=== PATIENT | female | born 1975 | race Caucasian/White ===

== ENCOUNTER 2024-12-02 09:40 | Observation (INO) ==
[2024-12-02] MEDS ORDERED: 0.9 % SODIUM CHLORIDE 1000 ML 1,000 ML IV SCH (10:00)
[2024-12-02] MEDS ORDERED: 0.9 % SODIUM CHLORIDE 1000 ML 1,000 ML IV ONE (10:02)
[2024-12-02 10:12] LABS: Basophils #(Absolute) Auto 0.0 (0.0-0.1); Basophils%(Percent) Auto 0.1 (0.1-0.85); Eosinophils#(Absolute)Auto 0.0 (0.0-0.2); Eosinophils%(Percent) Auto 0.0 % (0.4-2.8); Granulocytes % - Auto 91.8 % (47.8-71.3); Granulocytes#(Absolute)- Auto 13.8 (2.3-6.0); Hematocrit 39.7 % (35.9-46.7); Mean Corpuscular Volume 84.1 fl (81.0-93.7); Monocytes #(Absolute)- Auto 0.7 (1.1-3.1); Monocytes %(Percent)- Auto 4.5 % (3.6-9.8); Platelet Count 327 K/uL (152-353); White Blood Count 15.1 K/uL (4.3-9.3)
[2024-12-02] MEDS ORDERED: ONDANSETRON HCL/PF 4 MG/2 ML VIAL ONE (10:19)
[2024-12-02 10:20] LABS: Carbon Dioxide 28.0 mmol/L (21-32); Glucose 132.0 mg/dL (70-110); Potassium 3.7 mmol/L (3.6-5.2); Sodium 139.0 mmol/L (136-145)
[2024-12-02] MEDS: 0.9 % SODIUM CHLORIDE 1000 ML 1,000 ML IV ONE ×2 (10:20→10:54)
[2024-12-02] MEDS: ONDANSETRON HCL/PF 4 MG/2 ML VIAL IVP ONE (10:20)
--- NOTE | 2024-12-02 10:58 | Emergency Department Note ---
HPI - Nausea/Vomiting/Diarrhea General Chief complaint: Nausea/Vomiting/Diarrhea Stated complaint: vomiting Time Seen by Provider: 12/02/24 09:44 Source: patient Mode of arrival: walk-in Limitations: no limitations History of Present Illness HPI Narrative: This is a 49-year-old white female who presents with 3-day history of nausea, vomiting, diarrhea. She denies abdominal pain. She admits some low-grade fever and chills. She has not taken any medications at home. Nothing makes her symptoms better or worse. She is in no distress. She denies sick contacts or recent travel. She has no other complaints. MD elicited complaint: Reports nausea, vomiting and diarrhea; Denies abdominal pain Pertinent past history: Denies anorexia or bulimia Onset (ago): day(s) (3) Description of vomiting: Reports watery Description of diarrhea: Reports watery Associated nausea: Yes Associated abdominal pain: No Location of pain: Reports diffuse Radiation: Reports diffuse Pain consistency: Reports constant Severity: moderate Quality: Reports cramping Exacerbating factors: Reports none Relieving factors: Reports none Context: Reports possible food poisoning; Denies foreign travel, sick contacts or recent antibiotic use Associated symptoms: Reports myalgias; Denies chest pain, cough, diaphoresis or fever/chills Treatment prior to arrival: Denies Imodium, analgesics or NSAIDs Related Data Allergies Allergy/AdvReac Type Severity Reaction Status Date / Time Penicillins Allergy Verified 12/02/24 09:57 Review of Systems Status of ROS 10 or more systems reviewed and unremark able except as noted in history and below Constitutional Denies: fever, chills, change in weight or fatigue Eyes Denies: change in vision, blurry vision, blind spots or light sensitivity Ears, nose, mouth, and throat Reports: ear pain; Denies: throat pain, neck pain, throat swelling or difficulty swallowing Cardiovascular Denies: chest pain, palpitations, edema, swelling of feet/ankles or shortness of breath with exertion Respiratory Denies: shortness of breath, cough or wheezing Gastrointestinal Reports: nausea, vomiting and diarrhea; Denies: abdominal pain or difficulty swallowing Genitourinary Denies: painful urination, urinary frequency or urinary urgency Musculoskeletal Denies: back pain, neck pain, extremity pain or extremity swelling Integumentary/Breast Denies: rash, itching, redness or skin pain Neurological Denies: headache, numbness in extremities, weakness in extremities or lack of coordination Psychiatric Denies: anxiety, mood swings, panic attacks or change in sleep pattern Endocrine Denies: excessive urination, excessive thirst, fatigue or cold intolerance Hematologic/Lymphatic Denies: easy bruising, easy bleeding or enlarged lymph nodes Allergic/Immunologic Denies: hives, throat swelling, tongue swelling, facial swelling or wheezing PFSH PFSH Medical History Reflux esophagitis Hypertension Surgical History History of section History of 3 sections H/O: hysterectomy Exam Constitutional: normal general appearance, no apparent distress and average body habitus Vital Signs - 24 hr 12/02/24 09:50 12/02/24 10:00 12/02/24 10:30 Temperature 98.8 F Pulse Rate 133 H 111 H 106 H Respiratory Rate 18 18 18 Blood Pressure 122/74 115/67 113/67 Pulse Oximetry 97 97 97 Oxygen Delivery Me thod Room Air Room Air Room Air 12/02/24 11:00 Temperature Pulse Rate 110 H Respiratory Rate 18 Blood Pressure 109/65 Pulse Oximetry 98 Oxygen Delivery Me thod Room Air HENMT: normocephalic, head/scalp atraumatic, hearing grossly normal bilaterally and TMs abnormal (left) (dull) and (erythematous) Eyes: PERRL, EOMs intact bilaterally, conjunctivae normal and no scleral icterus Neck/C-Spine: visual inspection normal and trachea midline Lymph: no lymphadenopathy noted and no lymphedema noted Chest: inspection of chest normal and palpation of chest normal Respiratory: breath sounds equal bilaterally, normal respiratory effort and clear to auscultation bilaterally Cardiovascular: heart rate abnormal (tachycardic), regular rhythm noted, no gallop, no rub and no murmur Gastrointestinal: abdomen normal to inspection, abdomen soft to palpation and nontender to palpation Genitourinary: no CVA tenderness and bladder normal to palpation Back/Pelvis: spine normal to inspection, no thoracic spine tenderness, no lumbar spine tenderness, thoracic spine ROM normal and lumbar spine ROM normal Extremities: normal to inspection, normal to palpation, no tenderness and full ROM Neurology: no movement abnormality noted, no focal motor deficit noted, no sensory deficits noted, speech normal and coordination normal Psychiatry: mental status grossly normal, thought process normal, cooperative and affect normal Skin: skin color normal, no rash, no lesions and no ecchymosis noted Course Course Hospital Course: Patient has nausea, vomiting, diarrhea. No abdominal tenderness on exam. No fever. She does have white count of 15, but again, denies any abdominal tenderness and has a benign exam. Patient symptoms most consistent with gastroenteritis. Patient given 2 L of fluid here, with some IV Zofran. Patient admits some improvement, but still feels very rough, and her heart rate remains elevated. We will admit her for intractable nausea vomiting, as well as dehydration. Patient discussed with hospitalist Paula Consultations Consultation #1: ANT Mitchell Time: 10:55 Vital Signs Vital signs: Vital Signs Temperature 98.8 F 12/02/24 09:50 Pulse Rate 133 H 12/02/24 09:50 Respiratory Rate 18 12/02/24 09:50 Blood Pressure 122/74 12/02/24 09:50 Pulse Oximetry 97 12/02/24 09:50 Oxygen Delivery Method Room Air 12/02/24 09:50 Temperature 98.8 F 12/02/24 09:50 Pulse Rate 120 H 12/02/24 12:41 Respiratory Rate 18 12/02/24 12:41 Blood Pressure 109/65 12/02/24 12:41 Pulse Oximetry 98 12/02/24 12:41 Oxygen Delivery Method Room Air 12/02/24 11:00 Discharge Plan Discharge Patient Disposition: Admitted As Observation Condition: Improved Clinical Impression: Gastroenteritis, Acute suppur left otitis media w/o spontan rupture tympanic membrane Interventions: ED Discharge Assessment Last Done: 12/02/24 12:41 ED Discharge Vital Sign Last Done: 12/02/24 12:41 Emergency Department Charge Sheet Last Done: 12/02/24 12:41 Time of Disposition: 10:57 Discharge Date/Time: 12/02/24 12:43 Procedures ED Procedure Instructions IV insertion IV fluids x120 minutes IV meds x1
[2024-12-02 11:22] LABS: PH BODY FLUID EXCP BLOOD 7.0 (5 - 9)
[2024-12-02] MEDS: ACETAMINOPHEN 500 MG TABLET PO PRN (13:53)
[2024-12-02] MEDS: 0.9 % SODIUM CHLORIDE 1000 ML 1,000 ML IV SCH (13:54)
[2024-12-02] MEDS: ONDANSETRON HCL/PF 4 MG/2 ML VIAL INJ PRN (13:54)
--- NOTE | 2024-12-02 14:42 | History & Physical Report ---
H&P: HPI History of Present Illness Chief complaint: GASTROENTERITIS,VOLUME DEPLETION, OTITIS MEDIA LEF Narrative: Pleasant 49 year old female reported to ED for complaints n/v/d x 2 days. She states subjective fever and headache 7/10. No chills, night sweats, dizziness, or blurred vision, no chest pain, cough, sob, palpitations. No melena or hematochezia, hematemesis. Hospitalist called to admit. 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 She was found to have WBC 15.1 in ED which I suspect is hemodilution. Review of Systems Status of ROS 10 or more systems reviewed and unremark able except as noted in history and below Neurological Reports: headache PFSH PFSH Medical History (Updated 12/02/24 @ 14:40 by Paula Velasco NP) Reflux esophagitis Hypertension Surgical History History of section History of 3 sections H/O: hysterectomy Social History Problems where you live: no known problems Highest level of school completed/degree received: [employer] Meds Home Medications and Allergies Allergies Allergy/AdvReac Type Severity Reaction Status Date / Time Penicillins Allergy Verified 12/02/24 09:57 Exam Constitutional: normal general appearance, no apparent distress, average body habitus, no limitations and alert Vital Signs - 24 hr 12/02/24 09:50 12/02/24 10:00 12/02/24 10:30 Temperature 98.8 F Pulse Rate 133 H 111 H 106 H Pulse Rate [Left A pical] Respiratory Rate 18 18 18 Blood Pressure 122/74 115/67 113/67 Blood Pressure [Le ft Arm] Pulse Oximetry 97 97 97 Oxygen Delivery Me thod Room Air Room Air Room Air 12/02/24 11:00 12/02/24 12:41 12/02/24 13:18 Temperature 98.3 F Pulse Rate 110 H 120 H Pulse Rate [Left A pical] 118 H Respiratory Rate 18 18 20 Blood Pressure 109/65 109/65 Blood Pressure [Le ft Arm] 120/67 Pulse Oximetry 98 98 98 Oxygen Delivery Me thod Room Air Room Air 12/02/24 13:18 Temperature Pulse Rate Pulse Rate [Left A pical] Respiratory Rate Blood Pressure Blood Pressure [Le ft Arm] Pulse Oximetry Oxygen Delivery Me thod Room Air HENMT: normocephalic and head/scalp atraumatic Eyes: conjunctivae normal, no scleral icterus, normal visual lane by confrontation and no nystagmus Neck/C-Spine: visual inspection normal and trachea midline Lymph: no lymphadenopathy noted Chest: inspection of chest normal Respiratory: breath sounds equal bilaterally, normal respiratory effort, clear to auscultation bilaterally, no wheezes, no rales, no retractions, no use of accessory muscles and chest percussion normal Cardiovascular: normal heart rate noted (tachycardia), regular rhythm noted, no gallop, no rub, no murmur, no JVD, no clicks, peripheral pulses 2+ throughout and no bruits noted Gastrointestinal: abdomen normal to inspection, abdomen soft to palpation and normoactive bowel sounds (hyperactive BS throughout) Genitourinary: deferred Extremities: normal to inspection, normal to palpation, no tenderness, full ROM, no joint enlargement and no deformity 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, no movement abnormality noted, no focal motor deficit noted, no sensory deficits noted, gait normal, speech normal, coordination normal and no fasciculations noted Psychiatry: mental status grossly normal, oriented x3, thought process normal, cooperative, affect normal and memory normal Skin: skin color normal, no rash, no lesions, no jaundice and no petechiae Assessment and Plan Assessment and Plan (1) Intractable nausea and vomiting: Code(s): R11.2 - Nausea with vomiting, unspecified (2) Diarrhea: Code(s): R19.7 - Diarrhea, unspecified (3) Headache: Code(s): R51.9 - Headache, unspecified (4) Leukocytosis: Code(s): D72.829 - Elevated white blood cell count, unspecified (5) Dehydration: Code(s): E86.0 - Dehydration Plan IV fluids for rehydration Zofran prn NPO for now Ketorolac IV for headache/pain Continue home medications Strict I/O's Repeat CBC, CMP in am. Blood cultures pending Results Labs Labs: CBC 12/02/24 Range/Units 10:10 WBC 15.1 H (4.3-9.3) K/uL RBC 4.7 (4.00-5.50) M/uL Hgb 13.4 (12.5-15.8) gm/dL Hct 39.7 (35.9-46.7) % Plt Count 327 (152-353) K/uL Gran % 91.8 H (47.8-71.3) % Lymph % (Auto) 3.6 L (20.0-43.0) % [place] % (Auto) 4.5 (3.6-9.8) % Eos % (Auto) 0.0 L (0.4-2.8) % Baso % (Auto) 0.1 (0.1-0.85) Lymph # (Auto) 0.5 L (1.1-3.1) [place] # (Auto) 0.7 L (1.1-3.1) Eos # (Auto) 0.0 (0.0-0.2) Baso # (Auto) 0.0 (0.0-0.1) Absolute Gran (auto) 13.8 H (2.3-6.0) CMP 12/02/24 10:10 Sodium 139 Potassium 3.7 Chloride 102.0 Carbon Dioxide 28 BUN 16 Creatinine 1.1 Glucose 132 H Calcium 8.8 Liver Function 12/02/24 Range/Units 10:10 Total Bilirubin 0.48 (0.0-1.0) mg/dL AST 18 (15-37) U/L ALT 48 (30-65) U/L Alkaline Phosphatase 81 (50-136) U/L Albumin 3.6 (3.4-5.0) g/dL Urine 12/02/24 11:00 Urine Color Yellow Urine Appearance Clear Ur Specific [place] 1.010 Urine Protein Negative Urine Glucose (UA) Normal
[2024-12-02] MEDS: MORPHINE SULFATE 2 MG/ML CARTRIDGE IV PRN (20:03)
[2024-12-02] MEDS: PROMETHAZINE HCL 25 MG in 0.9 % SODIUM CHLORIDE 50 ML IV PRN (20:04)
[2024-12-02] MEDS: AZITHROMYCIN 250 MG TABLET PO ONE (20:53)
[2024-12-03 04:51] LABS: Basophils #(Absolute) Auto 0.0 (0.0-0.1); Basophils%(Percent) Auto 0.2 (0.1-0.85); Eosinophils#(Absolute)Auto 0.0 (0.0-0.2); Eosinophils%(Percent) Auto 0.2 % (0.4-2.8); Granulocytes % - Auto 64.6 % (47.8-71.3); Granulocytes#(Absolute)- Auto 5.8 (2.3-6.0); Hematocrit 33.6 % (35.9-46.7); Mean Corpuscular Volume 85.0 fl (81.0-93.7); Monocytes #(Absolute)- Auto 0.5 (1.1-3.1); Monocytes %(Percent)- Auto 5.8 % (3.6-9.8); Platelet Count 253 K/uL (152-353); White Blood Count 9.1 K/uL (4.3-9.3)
[2024-12-03 05:50] LABS: Carbon Dioxide 24.0 mmol/L (21-32); Glucose 89.0 mg/dL (70-110); Potassium 3.0 mmol/L (3.6-5.2); Sodium 142.0 mmol/L (136-145)
[2024-12-03] MEDS ORDERED: AZITHROMYCIN 250 MG TABLET PO SCH (09:00)
[2024-12-03] MEDS: POTASSIUM CHLORIDE 20 MEQ TAB.ER.PRT PO ONE (09:17)
[2024-12-03] MEDS: CIPROFLOXACIN 400 MG/200ML-D5W 400 MG/200 ML PIGGYBACK IV SCH (09:17)
[2024-12-03] MEDS: PANTOPRAZOLE SODIUM 40 MG TABLET.DR PO SCH (09:17)
[2024-12-03] MEDS: KETOROLAC 30 MG/ML INJ VIAL IVP PRN (10:16)
--- NOTE | 2024-12-03 10:31 | Progress Note ---
Progress Note: Subjective Subjective Interval history: Ms. Trujillo is feeling slighlty better today. She still continues to have abdominal pain but vomiting has subsided and she is advancing her diet. She still has headache despite tylenol during the night most likely from otitis, will add Toradol to accompany zithromax. WBC has improved from 15.1 to 9.7 will add cipro and flagyl for GI coverage. Exam Constitutional: normal general appearance, no apparent distress, average body habitus, no limitations and alert Vital Signs - 24 hr 12/02/24 10:30 12/02/24 11:00 12/02/24 12:41 Temperature Pulse Rate 106 H 110 H 120 H Pulse Rate [Left A pical] Respiratory Rate 18 18 18 Blood Pressure 113/67 109/65 109/65 Blood Pressure [Le ft Arm] Pulse Oximetry 97 98 [facility] 12/02/24 13:18 12/02/24 13:18 12/02/24 16:00 Temperature 98.3 F 98 F Pulse Rate Pulse Rate [Left A pical] 118 H 117 H Respiratory Rate 20 19 Blood Pressure Blood Pressure [Le ft Arm] 120/67 110/58 Pulse Oximetry 98 95 [facility] Room Air 12/02/24 20:00 12/03/24 00:40 12/03/24 08:00 Temperature 98.5 F 99.8 F H 98.4 F Pulse Rate Pulse Rate [Left A pical] 104 H 104 H 105 H Respiratory Rate 17 18 16 Blood Pressure Blood Pressure [Le ft Arm] 132/73 127/79 144/86 Pulse Oximetry 97 95 95 [facility] Room Air HENMT: normocephalic and head/scalp atraumatic Eyes: conjunctivae normal, no scleral icterus, normal visual lane by confrontation and no nystagmus Neck/C-Spine: visual inspection normal and trachea midline Lymph: no lymphadenopathy noted Chest: inspection of chest normal Respiratory: breath sounds equal bilaterally, normal respiratory effort, clear to auscultation bilaterally, no wheezes, no rales, no retractions, no use of accessory muscles and chest percussion normal Cardiovascular: normal heart rate noted (tachycardia), regular rhythm noted, no gallop, no rub, no murmur, no JVD, no clicks, peripheral pulses 2+ throughout and no bruits noted Gastrointestinal: abdomen normal to inspection, abdomen soft to palpation and normoactive bowel sounds Genitourinary: deferred Extremities: normal to inspection, normal to palpation, no tenderness, full ROM, no joint enlargement and no deformity 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, no movement abnormality noted, no focal motor deficit noted, no sensory deficits noted, gait normal, speech normal, coordination normal and no fasciculations noted Psychiatry: mental status grossly normal, oriented x3, thought process normal, cooperative, affect normal and memory normal Skin: skin color normal, no rash, no lesions, no jaundice and no petechiae Progress Note: Objective Labs Labs: CBC 12/03/24 Range/Units 04:40 WBC 9.1 (4.3-9.3) K/uL RBC 4.0 (4.00-5.50) M/uL Hgb 11.4 L (12.5-15.8) gm/dL Hct 33.6 L (35.9-46.7) % Plt Count 253 (152-353) K/uL Gran % 64.6 (47.8-71.3) % Lymph % (Auto) 29.2 (20.0-43.0) % [place] % (Auto) 5.8 (3.6-9.8) % Eos % (Auto) 0.2 L (0.4-2.8) % Baso % (Auto) 0.2 (0.1-0.85) Lymph # (Auto) 2.6 (1.1-3.1) [place] # (Auto) 0.5 L (1.1-3.1) Eos # (Auto) 0.0 (0.0-0.2) Baso # (Auto) 0.0 (0.0-0.1) Absolute Gran (auto) 5.8 (2.3-6.0) CMP 12/02/24 12/03/24 10:10 04:40 Sodium 139 142 Potassium 3.7 3.0 L Chloride 102.0 109.0 H Carbon Dioxide 28 24 BUN 16 8 Creatinine 1.1 0.7 Glucose 132 H 89 Calcium 8.8 7.3 L Liver Function 12/02/24 Range/Units 10:10 Total Bilirubin 0.48 (0.0-1.0) mg/dL AST 18 (15-37) U/L ALT 48 (30-65) U/L Alkaline Phosphatase 81 (50-136) U/L Albumin 3.6 (3.4-5.0) g/dL Urine 12/02/24 11:00 Urine Color Yellow Urine Appearance Clear Ur Specific [place] 1.010 Urine Protein Negative Urine Glucose (UA) Normal Imaging CT scan - abdomen: Radiologist's impression: Patient: Nolan Trujillo MR#: [id number] : 1975 Acct:[id number] Age/Sex: 49 / F ADM Date: 12/02/24 Loc: 1113-[address]: Paula Velasco NP Ordering Physician: Venkat North Date of Service: 12/02/24 Procedure(s): CT abdomen pelvis w con Accession Number(s): [id number] cc: Paula Velasco NP; PAULA RESENDIZ NP; Venkat North~ EXAMINATION: CT ABDOMEN PELVIS W CON HISTORY: nausea/vomiting, leukocytosisnausea/vomiting, leukocytosis; COMPARISON: CT abdomen 09/26/2020 TECHNIQUE: Contiguous axial CT images of the abdomen and pelvis following intravenous contrast. Images reviewed in the axial imaging plane with reformatted sagittal and coronal images.The above CT scan was done with automated exposure control and the mA and kV was adjusted to obtain quality images according to patient size. FINDINGS: The liver measures 19 by 19 by 19 cm. There is a 0.9 cm cyst central density 6 Hounsfield units posterior segment right hepatic lobe. There is diffuse fatty infiltration of the liver having density measurements of 39 Hounsfield units even on postcontrast images. Gallbladder minimally distended. No bile duct dilatation. Pancreas, spleen, adrenal glands appear intact. Arterial vascular calcifications abdominal aorta. No aneurysm. Kidneys normal size and position. Mild fullness of the left renal pelvis without significant dilatation of the renal calices. Nonobstructing 3 mm calcification along the left anterior renal pelvis which may be vascular. No stranding of the perinephric fat. Details of the GI tract are limited since oral contrast was not used. Mild distention of the few loops of distal small bowel containing fluid. The colon is normal caliber. No evidence of acute appendicitis. No ascites. Small amount of fluid within the stomach. Urinary bladder contains a trace amount of urine. Uterus is absent. Osseous structures appear intact. Pulmonary bases are clear. IMPRESSION: Nonspecific mild distention of the few loops of distal small bowel containing fluid. Mild hepatomegaly. Subcentimeter cyst posterior segment right hepatic lobe. Hysterectomy. THIS IS AN ELECTRONICALLY VERIFIED FINAL REPORT 12/02/2024 12:41 PM - Electronically signed by Ruth Londono MD Dictated By: Ruth Londono Signed By: Progress Note: A&P Assessment and Plan (1) Gastroenteritis: Assessment and Plan: Flagyl 500mg IV q8hrs Cipro 400mg IV BID Zofran 4mg IV q6hrs Phenergan 25mg IV q6hrs prn Morphine 2mg IV q2hrs prn (2) Leukocytosis: Assessment and Plan: Flagyl 500mg IV q8hrs Cipro 400mg IV BID Zofran 4mg IV q6hrs Phenergan 25mg IV q6hrs prn Morphine 2mg IV q2hrs prn (3) Intractable nausea and vomiting: Assessment and Plan: Flagyl 500mg IV q8hrs Cipro 400mg IV BID Zofran 4mg IV q6hrs Phenergan 25mg IV q6hrs prn Morphine 2mg IV q2hrs prn (4) Diarrhea: Assessment and Plan: Stool studies Flagyl 500mg IV q8hrs Cipro 400mg IV BID Zofran 4mg IV q6hrs Phenergan 25mg IV q6hrs prn Morphine 2mg IV q2hrs prn (5) Headache: Assessment and Plan: Zithromax 500mg po daily x 3 doses Toradol 30mg IV q8hrs prn (6) Dehydration: Assessment and Plan: NS@ 150ml/hr (7) Otitis media: Assessment and Plan: Zithromax 500mg po daily x 3 doses Toradol 30mg IV q6hrs prn Plan Admit VS q4hrs Advance diet as tolerated CBC BMP daily Fall Risk Details Larsen Fall Scale Risk Level: Moderate Fall Risk Current Medications: Current Medications Acetaminophen (Acetaminophen 500 Mg Tablet) 500 mg PO Q6H PRN PRN Reason: Fever OF 100.5 OR GREATER Last Admin: 12/03/24 09:17 Dose: 500 mg Azithromycin (Azithromycin 250 Mg Tablet) 500 mg PO Q24H FRANK Stop: 12/04/24 21:01 Sodium Chloride (Sodium Chloride) 1,000 mls @ 150 mls/hr IV CONT [facility] Last Admin: 12/03/24 03:15 Dose: 150 mls/hr Promethazine HCl 25 mg/ Sodium (Chloride) 51 mls @ 200 mls/hr IV Q6H PRN PRN Reason: Nausea And Vomiting Last Infusion: 12/02/24 20:50 Dose: Infused Metronidazole (Metronidazole 500 Mg/100ml-Ns) 500 mg in 100 mls @ 100 mls/hr IV Q8H FRANK Ciprofloxacin/Dextrose (Ciprofloxacin 400 Mg/200ml-D5w) 400 mg in 200 mls @ 200 mls/hr IV Q12H [facility] Last Admin: 12/03/24 09:17 Dose: 200 mls/hr Ketorolac Tromethamine (Ketorolac 30 Mg/Ml Inj Vial) 30 mg IVP Q8H PRN PRN Reason: MODERATE PAIN 5-7 Stop: 12/08/24 08:59 Last Admin: 12/03/24 10:16 Dose: 30 mg Morphine Sulfate (Morphine Sulfate 2 Mg/Ml Cartridge) 1 mg IV Q2H PRN PRN Reason: Pain Last Admin: 12/03/24 01:45 Dose: 1 mg Ondansetron HCl (Ondansetron Hcl/Pf 4 Mg/2 Ml Vial) 4 mg INJ Q6H PRN PRN Reason: Nausea And Vomiting Last Admin: 12/03/24 09:17 Dose: 4 mg Pantoprazole Sodium (Pantoprazole Sodium 40 Mg Tablet.Dr) 40 mg PO DAILY [facility] Last Admin: 12/03/24 09:17 Dose: 40 mg Time Spent With Patient Time: Total time spent is greater than 50% in coordination of care (as documented) at patient's floor/unit and/or counseling patient: Time with patient: 25 - 35 minutes
[2024-12-03] MEDS: METRONIDAZOLE 500 MG/100ML-NS 500 MG/100 ML PIGGYBACK IV SCH (11:21)
[2024-12-03] MEDS: AZITHROMYCIN 250 MG TABLET PO SCH (21:08)
[2024-12-04 04:43] LABS: Basophils #(Absolute) Auto 0.0 (0.0-0.1); Basophils%(Percent) Auto 0.4 (0.1-0.85); Eosinophils#(Absolute)Auto 0.2 (0.0-0.2); Eosinophils%(Percent) Auto 3.0 % (0.4-2.8); Granulocytes % - Auto 47.9 % (47.8-71.3); Granulocytes#(Absolute)- Auto 3.2 (2.3-6.0); Hematocrit 34.5 % (35.9-46.7); Mean Corpuscular Volume 84.0 fl (81.0-93.7); Monocytes #(Absolute)- Auto 0.7 (1.1-3.1); Monocytes %(Percent)- Auto 9.9 % (3.6-9.8); Platelet Count 254 K/uL (152-353); White Blood Count 6.8 K/uL (4.3-9.3)
[2024-12-04 05:08] LABS: Carbon Dioxide 25.0 mmol/L (21-32); Glucose 96.0 mg/dL (70-110); Potassium 3.0 mmol/L (3.6-5.2); Sodium 140.0 mmol/L (136-145)
[2024-12-04 12:12] VITALS: BP 161/94; PULSE 91; RESP 16; TEMP 98.3
[2024-12-04] MEDS: POTASSIUM CHLORIDE 20 MEQ TAB.ER.PRT PO ONE (14:36)
--- NOTE | 2024-12-07 22:17 | Discharge Summary ---
DS: Providers Provider Date of admission: 12/02/24 12:12 Primary care physician: ISAAK RESENDIZ NP DS: Diagnosis Discharge Diagnosis (1) Gastroenteritis: Assessment and plan: 1. CT abd/pelvis results as below 2. Completed Zithromax 500mg po Daily X 3 days 3. Received IV Cipro. Continue home on oral Cipro 500mg BID for an additional 3 days 4. Received IV Flagyl. Continue home on oral Flagyl 500mg Q8H for an additional 3 days 5. Prescription for Zofran 4mg PO Q8H PRN nausea and vomiting 6. Stool studies negative 7. Follow-up with PCP in 1 week with repeat labs. (2) Leukocytosis: Assessment and plan: 1. Resolved at time of discharge; WBC 6.8 (3) Diarrhea: Assessment and plan: 1. Stool studies negative 2. Resolved at time of discharge (4) Headache: Assessment and plan: 1. Received IV Morphine and Toradol 2. Resolved at time of discharge (5) Dehydration: Assessment and plan: 1. Resolved with IV hydration (6) Otitis media: Assessment and plan: 1. Completed Zithromax 500mg PO daily for 3 days 2. Patient has appointment scheduled with PCP at 10am tomorrow morning to follow-up on ear infection (7) Hypokalemia: Assessment and plan: 1. Potassium 40mEq PO X 1 dose prior to discharge 2. Prescription for Potassium 20mEq PO daily for 5 days 3. Magnesium 1.8 3. Follow-up with PCP in 1 week for repeat labs (8) Tachycardia: Assessment and plan: 1. Resolved with IV hydration and has returned to baseline at time of discharge. Plan Patient states she has an appointment with her PCP at 10am tomorrow morning to follow-up on her ear infection. She was instructed to see PCP again in 1 week for repeat labs to check potassium level or as recommended/instructed by PCP. DS: Summary Hospital Course Hospital Course: Ms. Nolan Trujillo is a 49-year-old white female who was admitted after presenting to the ER with a 2 to 3 day history of nausea, vomiting, and diarrhea. She denied abdominal pain but admitted to some low-grade fever and chills. Patient evaluated in the ER with physical exam, CBC, CMP, UA, Magnesium, stool studies, and CT abdomen/pelvis. Patient afebrile, but tachycardic with an initial documented heart rate of 133. CBC revealed a WBC of 15.1. CT abdomen/pelvis results as below. Findings consistent with left otits media on physical exam. She was admitted for observation for IV hydration, antibiotic therapy, control of nausea and vomiting with antiemetics, pain management, and serial labs. Hospital course uneventful. Patient received supportive management including IV hydration, antibiotic therapy, control of nausea and vomiting with antiemetics, and pain management. Patient has been able to advance to and tolerate a regular diet. Upon evaluation, patient reports that she feels at baseline. She reports her appetite has returned to normal and that she has consumed breakfast and lunch without any nausea, vomiting, bloating, or abdominal pain. Heart rate has returned to baseline in the 80s to low 90s. Patient states that her diarrhea has resolved and that her stool is "more formed" in appearance. Patient states that she is ready to be discharged home. Patient will be discharged home to follow-up with PCP in am and again in 1 week to repeat potassium level. Patient informed of treatment plan, diagnostic testing and results, and discharge instructions. At this time, patient has met all discharge goals and no longer necessitates hospitalization. Appropriate disposition arrangements and follow-up care have been made, and follow-up care has been coordinated. The patient has been instructed to return to ER if symptoms persist or worsens. Status at Discharge Functional status at discharge: independent ambulation Overall status at discharge: patient is back to baseline Time Spent with Patient Time attestation: Total time spent providing and/or coordinating discharge services: 35 minutes Time spent: greater than 30 minutes Exam Exam: Patient seen sitting up in bed in no acute distress. She is pleasant, alert and oriented to person, place, time, and situation. She has been able to advance to a regular diet. Upon evaluation, patient reports that she feels at baseline. She reports her appetite has returned to normal and that she has consumed breakfast and lunch without any nausea, vomiting, bloating or distention, or abdominal pain. Denies abdominal tenderness upon exam. Heart rate has returned to baseline in the 80s to low 90s. Patient states that her diarrhea has resolved and that her stool is "more formed" in appearance. Constitutional: normal general appearance, no apparent distress, average body habitus, no limitations and alert HENMT: normocephalic, head/scalp atraumatic, hearing grossly normal bilaterally and external ears normal Eyes: PERRL, EOMs intact bilaterally, conjunctivae normal, no scleral icterus and no nystagmus Neck/C-Spine: visual inspection normal, trachea midline and cervical full ROM noted Lymph: no lymphadenopathy noted and no lymphedema noted Chest: inspection of chest normal and palpation of chest normal Respiratory: breath sounds equal bilaterally, normal respiratory effort, clear to auscultation bilaterally, no wheezes, no retractions and no use of accessory muscles Cardiovascular: normal heart rate noted, regular rhythm noted and peripheral pulses 2+ throughout Gastrointestinal: abdomen normal to inspection, abdomen soft to palpation, nontender to palpation, nondistended and normoactive bowel sounds Genitourinary: Deferred Back/Pelvis: spine normal to inspection Extremities: normal to inspection, normal to palpation, no tenderness and full ROM 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 Radiologist's impression: FINDINGS: The liver measures 19 by 19 by 19 cm. There is a 0.9 cm cyst central density 6 Hounsfield units posterior segment right hepatic lobe. There is diffuse fatty infiltration of the liver having density measurements of 39 Hounsfield units even on postcontrast images. Gallbladder minimally distended. No bile duct dilatation. Pancreas, spleen, adrenal glands appear intact. Arterial vascular calcifications abdominal aorta. No aneurysm. Kidneys normal size and position. Mild fullness of the left renal pelvis without significant dilatation of the renal calices. Nonobstructing 3 mm calcification along the left anterior renal pelvis which may be vascular. No stranding of the perinephric fat. Details of the GI tract are limited since oral contrast was not used. Mild distention of the few loops of distal small bowel containing fluid. The colon is normal caliber. No evidence of acute appendicitis. No ascites. Small amount of fluid within the stomach. Urinary bladder contains a trace amount of urine. Uterus is absent. Osseous structures appear intact. Pulmonary bases are clear. IMPRESSION: Nonspecific mild distention of the few loops of distal small bowel containing fluid. Mild hepatomegaly. Subcentimeter cyst posterior segment right hepatic lobe. Hysterectomy. Discharge Plan Discharge Disposition: Home, Self-Care Condition: Improved Discharge Medications: New ciprofloxacin HCl [Cipro] 500 mg tablet 500 mg PO BID Qty: 6 0RF metronidazole 500 mg tablet 500 mg PO Q8H Qty: 10 0RF ondansetron 4 mg tablet,disintegrating 4 mg PO Q8H PRN (Reason: nausea and vomiting) Qty: 14 0RF potassium chloride 20 mEq tablet extended release 20 meq PO DAILY Qty: 5 0RF Continued alprazolam 0.25 mg tablet 0.25 mg PO BID PRN (Reason: anxiety) Patient Comments: TAKE ONE TABLET BY MOUTH TWICE DAILY NEEDED diphenhydramine HCl 12.5 mg/5 mL liquid 12.5 mg PO QID PRN (Reason: allergy symptoms) Patient Comments: SWALLOW FIVE MILLILITER BY MOUTH FOUR TIMES DAILY DIRECTED hydrochlorothiazide 12.5 mg capsule 12.5 mg PO DAILY Patient Comments: TAKE ONE CAPSULE BY MOUTH EVERY MORNING lisinopril 20 mg tablet 20 mg PO DAILY Patient Comments: TAKE ONE TABLET BY MOUTH EVERY DAY trazodone 100 mg tablet 100 mg PO BEDTIME Patient Comments: TAKE ONE TABLET BY MOUTH AT BEDTIME valacyclovir 500 mg tablet 500 mg PO DAILY Patient Comments: TAKE ONE TABLET BY MOUTH EVERY DAY Discontinued clarithromycin 500 mg tablet 500 mg PO Q12H Patient Comments: TODAY OR TOMORROW WOULD BE HER LAST DOSES lidocaine HCl 2 % solution 5 ml PO QID PRN (Reason: pain) Patient Comments: SWALLOW FIVE MILLILITER BY MOUTH FOUR TIMES DAILY DIRECTED Discharge Orders: Discharge Order (Routine); Ordered 12/04/24 Ordered By: Gina Ko Activity: increase activity as tolerated Diet: advance to your usual diet Interventions: Discharge Assessment Last Done: 12/04/24 14:54 MED/SURG & ICU Observation Charge Sheet Last Done: 12/04/24 14:57 Patient Instructions: Gastroenteritis (DC) Activity Restrictions/Additional Instructions: KEEP FOLLOW-UP WITH PRIMARY CARE PROVIDER CONTINUE TAKING POTASSIUM CHLORIDE TABLETS DIRECTED NEED BMP RECHECKED IN 1 WEEK TO ENSURE POTASSIUM LEVEL IS COMING UP INCREASE FLUID AND ELECTROLYTE INTAKE Forms: Portal/Health Info Access Inst Follow-Ups: ISAAK RESENDIZ NP [Primary Care Provider] Discharge Date/Time: 12/04/24 15:48
== END 2024-12-04 15:48 | disposition home or self-care (01) ==
LOC: ED 09:40 → MS 09:40
PROVIDERS: ADMIT Nurse Practitioner Family; ATTEND Nurse Practitioner Family